=== PATIENT | male | born 1985 | race Caucasian/White ===

== ENCOUNTER 2021-10-31 09:24 | Emergency (ER) | payer SELFPAY ==
[2021-10-31] MEDS ORDERED: Ondansetron 4 MG Tab.DIS PO ONE (09:47)
[2021-10-31] MEDS ORDERED: Sodium Chloride 0.9% 10 ML Syringe FLUSH PRN (09:47)
[2021-10-31] MEDS ORDERED: Ketorolac 30 MG/ML SDV IVPUSH ONE (09:54)
[2021-10-31] MEDS ORDERED: Morphine 2 MG/ML SYRINGE IVPUSH ONE ×2 (10:21→14:35)
[2021-10-31] MEDS ORDERED: Metoclopramide 10 MG/2 ML SDV IVPUSH ONE (10:21)
[2021-10-31] MEDS ORDERED: Lactated Ringers 1,000 ML IV ONE (10:22)
[2021-10-31] MEDS ORDERED: Iopamidol 612 MG/ML 100 ML Bottle IV PRN (12:53)
[2021-10-31] MEDS ORDERED: Sodium Chloride 0.9% 100 ML IV SCH (13:00)
[2021-10-31] MEDS ORDERED: Sodium Chloride 0.9% 1,000 ML IV ONE (13:19)
[2021-10-31] MEDS ORDERED: metroNIDAZOLE/Normal Saline 500 MG in Premix Bag 1 BAG IV ONE (14:33)
[2021-10-31] MEDS ORDERED: Ciprofloxacin in D5W 400 MG in Premix Bag 1 BAG IV ONE ×2 (14:34)
== END 2021-10-31 17:07 | disposition home or self-care (01) ==
LOC: JP.ED 09:24
DX: K52.9 Noninfective gastroenteritis and colitis, unspecified (principal)
CPT/HCPCS: 36415; 74177; 74177-26; 80053; 81001; 83605; 83690; 85025; 86140; 96361; 96365; 96368; 96375; 96376; 99284-25; J0744; J1885; J2270; J2765; J3490; J7030; J7120; Q0162; Q9967